=== PATIENT | female | born 1990 | race Two or more races ===

== ENCOUNTER 2020-11-28 23:55 | Emergency (ER) | payer MEDICAID, OTHER ==
[~2020-11-28] VITALS: Ht 162.6 cm; Wt 88.6 kg
--- NOTE | 2020-11-29 00:05 | NUR ---
THIS IS A 30Y F THAT COMES IN FOR FORDE X1WK, WOKE UP THIS AM AROUND 0800 WITH INTENSE FORDE WITH FACIAL DROOP AND R SIDED WEAKNESS, PT REPORTS WHEN SHE EATS "THE FOOD FALLS OUT OF HER MOUTH", DENIES HX TRAUMA. PT CONNECTED TO ALL MONITORING ERP AT BEDSIDE FOR ASSESSMENT
[2020-11-29 00:48] LABS: BASOPHILS % (AUTO) 1 % (0-1); EOSINOPHILS % (AUTO) 2 % (1-7); LYMPHOCYTES % (AUTO) 35 % (22-44); MEAN CORPUSCULAR HEMOGLOBIN 25.9 pg (27.0-34.8); MEAN CORPUSCULAR HGB CONC 33.8 g/dL (32.4-35.8); MEAN PLATELET VOLUME 8.1 fL (7.4-10.4); MONOCYTES % (AUTO) 6 % (2-9); NEUTROPHILS % (AUTO) 56 % (42-75); PLATELET COUNT 310 x10^3/uL (130-400); RED BLOOD COUNT 4.78 x10^6/uL (3.82-5.3); RED CELL DISTRIBUTION WIDTH 14.7 % (9.6-15.2)
[2020-11-29 00:49] LABS: MD NO
[2020-11-29 00:54] LABS: ALANINE AMINOTRANSFERASE 43 U/L (12-78); ALBUMIN 3.3 g/dL (3.4-5.0); ANION GAP 7 mmol/L (5-15); CALCIUM 8.3 mg/dL (8.5-10.1); CHLORIDE 109 mmol/L (98-107)
[2020-11-29 00:57] LABS: INTERNATIONAL NORMALIZED RATIO 1.02 (0.93-1.1); PROTHROMBIN TIME 10.9 Seconds (9.6-11.5)
[2020-11-29 00:59] LABS: ALKALINE PHOSPHATASE 102 U/L (45-117); BILIRUBIN,TOTAL 0.3 mg/dL (0.2-1.0); CREATININE 0.67 mg/dL (0.55-1.02); TOTAL PROTEIN 7.3 g/dL (6.4-8.2); TROPONIN I < 0.015 ng/mL (0.000-0.045)
[2020-11-29] MEDS ORDERED: OMNIPAQUE 350 MG/ML, 100ML BOTTLE ONE (01:00)
--- NOTE | 2020-11-29 01:35 | NUR ---
PT RETURNED FROM CT AT THIS TIME.
[2020-11-29 02:07] VITALS: BP 102/57
--- NOTE | 2020-11-29 02:30 | NUR ---
PT STS THAT SHE HAS TO GET HER RIDE BACK TO TO HER FAMILY AND DOCTOR, STS WILL FOLLOW UP THERE, PT AND FAMILY UNDERSTAND RISKS OF LEAVING AND VERBALIZE UNDERSTANDING OF THIS.
--- NOTE | 2020-11-29 02:47 | NUR ---
AMA FORM SIGNED PT AND FAMILY TO DC AT THIS TIME
== END 2020-11-29 02:50 | disposition left against medical advice (07) ==
LOC: ED 11-29 02:30
DX: R53.1 Weakness (principal); R51.9 Headache, unspecified; R07.9 Chest pain, unspecified
CPT/HCPCS: 36415; 70450; 70496; 70498; 71045; 80053; 84484; 84703; 85025; 85610; 85730; 93005; 99285; Q9967